=== PATIENT | male | born 1965 | race Hispanic/Latino ===

== ENCOUNTER → 2023-02-08 | Outpatient (CLI) | payer OTHER ==
[~2023-02-08] MED LIST: AEC81 PO; ATOR40TA69 PO; CARV3.12 PO; FURO20TA6 PO; GABA-529 PO; METO25 PO; ROCURONIUM 10MG/1ML SYR 10 MG/ML ML ONE; SODIUM BICARB 50MEQ 50ML VIAL 200 ML ONE
== END | disposition home or self-care (01) ==
LOC: RAH 10:00
PROVIDERS: ATTEND Thoracic Surgery (Cardiothoracic Vascular Surgery)
DX: I25.10 Atherosclerotic heart disease of native coronary artery without angina pectoris (principal); I83.813 Varicose veins of bilateral lower extremities with pain
CPT/HCPCS: 93970; J3490